=== PATIENT | female | born 1995 | race Caucasian/White ===

== ENCOUNTER 2024-12-23 14:41 | Outpatient (CLI) | payer OTHER, SELFPAY ==
--- NOTE | 2024-12-23 15:00 | CRLHL7_ITS ---
For Patients: As a result of the Century Cures Act, medical imaging exams and procedure reports are released immediately into your electronic medical record. You may view this report before your referring provider. If you have questions, please contact your health care provider. OB ULTRASOUND LESS THAN 14 WEEKS, 12/23/2024 CLINICAL HISTORY: Dating and viability. COMPARISON: None. TECHNIQUE: Real time dave scale imaging of the fetus was performed. Transvaginal imaging performed. Transvaginal ultrasound of the pelvis was performed to better evaluate the genitourinary organs such as the ovaries and/or endometrium. FINDINGS: Imaging: TV. LMP: 10/18/2024. EMANUEL by LMP: 07/25/2025. GA: 9 weeks 3 days. CRL: 2.4 cm, 9 weeks 1 day. EMANUEL 07/27/2025. FHR: 176 bpm. GEST SAC: 3.4 cm, appears WNL. YOLK SAC: 3.7 mm, appears WNL. RIGHT OV: 5.0 x 2.6 x 3.7 cm. CL. LEFT OV: 3.6 x 1.9 x 2.4 cm. IMPRESSION: 1. Single living intrauterine measuring 9 weeks 1 day and sonographic due date 07/27/2025. 2. Simple right ovarian cyst measures 3.6 x 2.1 x 2.7 cm. Guilherme Gu M.D. Diagnostic Radiologist [email or web address] Transcribed: 9:46 am DW/Dictated by: Guilherme Gu MD @ 12/24/2024 6:52:00 AM (Electronically Signed)
== END 2024-12-23 14:42 | disposition home or self-care (01) ==
LOC: US 14:42
PROVIDERS: PCP Physician Assistant; Visit Provider Physician Assistant
DX: Z34.91 Encounter for supervision of normal pregnancy, unspecified, first trimester (principal); O34.81 Maternal care for other abnormalities of pelvic organs, first trimester; N83.291 Other ovarian cyst, right side; Z3A.09 9 weeks gestation of pregnancy
CPT/HCPCS: 76817; 83021; 86703; 86706; 86803; 86850; 86900; 86901; 87086; 87340; 87491; 87591; 87624; 88142

== ENCOUNTER 2024-12-23 15:52 | Outpatient (CLI) | payer OTHER, SELFPAY ==
[2024-12-23 22:12] LABS: Chlamydia DNA Amplified* NOT DETECTED (No Detected); GC DNA Amplified* NOT DETECTED (No Detected)
[2024-12-25 02:44] LABS: HPV Source Cervix
== END 2024-12-23 15:53 | disposition home or self-care (01) ==
PROVIDERS: PCP Physician Assistant; Visit Provider Physician Assistant
DX: Z34.01 Encounter for supervision of normal first pregnancy, first trimester (principal)
CPT/HCPCS: 83020; 83021; 85660; 86592; 86703; 86704; 86706; 86762; 86787; 86803; 86850; 86900; 86901; 87086; 87340; 87491; 87591; 87624; 87625; 88141; 88142

== ENCOUNTER 2025-01-17 10:09 | Outpatient (CLI) | payer OTHER, SELFPAY ==
--- NOTE | 2025-01-17 10:15 | CRLHL7_ITS ---
For Patients: As a result of the Century Cures Act, medical imaging exams and procedure reports are released immediately into your electronic medical record. You may view this report before your referring provider. If you have questions, please contact your health care provider. LEFT BREAST ULTRASOUND CLINICAL HISTORY: LEFT breast lump, follow-up. COMPARISON: 10/10/2023. TECHNIQUE: Real-time ultrasound imaging of LEFT breast with imaging documentation. FINDINGS: Targeted sonogram LEFT breast 11 o`clock 1 cm from the nipple performed. In this location, there is a solid slightly heterogeneous hypoechoic mass which measures 4.0 x 2.0 x 4.0 cm, previously measuring 2.6 x 0.9 x 2.1 cm. Mild internal vascularity noted along with small cystic areas. IMPRESSION: Solid mass LEFT breast 11 o`clock 1 cm from the nipple measuring 4 cm, increased in size compared to the prior study when it measured 2.6 cm. Findings are most consistent with fibroadenoma. RECOMMENDATIONS: Ultrasound-guided core needle biopsy should be considered to exclude phyllodes tumor. Surgical excision should be considered. Results and recommendations were discussed with the patient at the time of the exam. A lay language report of this examination will be provided to the patient. BI-RADS Category 4: Suspicious Dictated by Guilherme Gu MD @ 01/17/2025 11:21:02 AM jj/Dictated by: Guilherme Gu MD @ 01/17/2025 11:21:00 AM (Electronically Signed)
== END 2025-01-17 10:10 | disposition home or self-care (01) ==
LOC: US 10:11
PROVIDERS: Visit Provider Physician Assistant
DX: N63.20 Unspecified lump in the left breast, unspecified quadrant (principal)
CPT/HCPCS: 76642

== ENCOUNTER 2025-02-20 11:04 | Outpatient (CLI) | payer OTHER, SELFPAY ==
--- NOTE | 2025-02-20 11:15 | CRLHL7_ITS ---
For Patients: As a result of the Century Cures Act, medical imaging exams and procedure reports are released immediately into your electronic medical record. You may view this report before your referring provider. If you have questions, please contact your health care provider. ULTRASOUND-GUIDED BREAST BIOPSY CLINICAL HISTORY: Large solid mass. COMPARISON STUDIES: 10/10/2023, 01/17/2025. TECHNIQUE: Real-time ultrasound with image documentation was used for targeting the breast lesion. Core biopsy specimens were obtained using an automated gun with a 16-gauge biopsy needle. CONSENT and TIME OUT: The procedure, risks, and alternatives were explained to the patient and a consent was signed. [place] Protocol was followed including pre-procedure verification that relevant information/documentation was available, reviewed and properly matched to the patient; consent accurate and complete; and equipment and supplies available. Time Out was conducted just prior to starting procedure to verify the four required elements: patient identity, correct side/site marked (if applicable), procedure, relevant images/results properly labeled and displayed (if applicable). PROCEDURE: The patient was positioned supine on the ultrasound table. The breast was prepped with ChloraPrep. 8 cc of 1 percent lidocaine used for local anesthesia. Core samples were obtained. The specimens were placed in 10% formalin and sent to the pathology department. Pressure was held on the biopsy site until all bleeding subsided. The skin incision was closed with Steri-Strips. An ice pack was positioned over the biopsy site. Post-biopsy instructions were reviewed with the patient, and a written copy was given to her. LATERALITY: LEFT breast. LESION: Hypoechoic solid mass with a few internal cystic areas noted. Mass measures 4.0 x 2.0 x 4.0 cm at 11 o`clock 1 cm from the nipple. SUSPICION FOR MALIGNANCY: Probable fibroadenoma, rule out phyllodes tumor. NUMBER OF SAMPLES: 5. IMPRESSION: Ultrasound-guided breast biopsy. When the pathology report is available, an addendum to this report will be made. ACR not applicable Dictated by Guilherme Gu MD @ 02/20/2025 12:33:00 PM coty/Dictated by: Guilherme Gu MD @ 02/20/2025 12:33:00 PM (Electronically Signed)
== END 2025-02-20 11:05 | disposition home or self-care (01) ==
LOC: US 11:04
PROVIDERS: Visit Provider Surgery
DX: D24.2 Benign neoplasm of left breast (principal)
CPT/HCPCS: 19083; 88305; A4648; A4649

== ENCOUNTER 2025-03-06 06:16 | Day surgery (SDC) | payer OTHER, SELFPAY ==
[2025-03-06] VITALS (7 sets, daily range): BP systolic 102–127; BP diastolic 67–77; PULSE 63–88; RESP 16–18; TEMP 36.6–36.7; O2SAT 95–99; BMI 29.1
[2025-03-06] MEDS: LACTATED RINGERS 1000 ML 1,000 ML 100 ML IV (06:25)
[2025-03-06] MEDS: SODIUM CHLORIDE 0.9 % (FLUSH) 10 ML SYRINGE IVF (06:41)
--- NOTE | 2025-03-06 07:18 | SUR.PREOP ---
OB RN in room to do FHT, 150s reported for HR.
--- NOTE | 2025-03-06 07:39 | P.GSHP_ITS ---
History of Present Illness History of Present Illness Date Seen: 03/06/25 Chief complaint: Left Breast Mass Excision Narrative: Ade Maria is a 29 year old female who presents today for excision of a left breast mass. She is currently in her 2nd trimester. heart tones were performed and within normal limits. This has been without complication. Patient is otherwise healthy. No changes in her medical or surgical history. Review of Systems Status of ROS: Reports: 10 or more systems reviewed and unremarkable except as noted in History and below [facility] Social History (Updated 12/24/24 @ 09:52 by Yamilet Brasher PA-C) Narrative: Occupation: She is employed at a bank. Marital status: . Christian/cultural needs: no. Chemical or radiation exposure: no. Pre- tobacco use: Vaping pre . Pre- alcohol use: Occasional. Current tobacco use: no. Current alcohol use: no. Recreational drug use: no. Dietary restrictions: no. Blood transfusion acceptable in an emergency: yes. PSYCHOSOCIAL HISTORY: History of depression or currently depressed: Yes history, never treated. Current or past physical, emotional, or sexual mistreatment: Denies. Problems that will make it hard to make it to appointments: Denies. What is your current living situation?: I presently have a place to live Problems where you live: no known problems In the past 12 months, utilities in danger of being shut off: no In past 12 months, lack of transportation kept you from medical appts, meetings, work, or getting things needed for daily living: no In the past 12 mos, have been you worried that your food would run out before you had money to buy more?: never true In the past 12 mos, the food you bought just didn't last and you didn't have money to buy more?: never true Smoking Status: Never smoker Do you use any of these nicotine containing products: Vaping Products Smokeless tobacco user details: not since being How often do you have a drink containing alcohol: 2-4 times a month Alcohol type details: not since being AUDIT-C Alcohol total score: 2 Non-prescribed substance use: denies use Caffeine: Yes How often does anyone, including family, friends and others, physically hurt you : never How often does anyone, including family, friends and others, insult or talk down to you: never How often does anyone, including family, friends and others, threaten you with harm: never How often does anyone, including family, friends and others, scream or curse at you: never Meds Home Medications and Allergies Home Medications ?Medication ?Instructions ?Recorded ?Confirmed ?Type [id number] 3 fatty no.1 27 cap PO 12/23/24 09/0 02/03 History mg-1 mg-300 mg capsule magnesium 250 mg tablet 250 mg PO QDAY 12/23/242 11/03 History Allergies Allergy/AdvReac Type Severity Reaction Status Date / Time No Known Drug Allergies Allergy Verified 03/06/25 06:28 Exam Narrative: Exam Narrative: General: Alert and oriented, no acute distress. Respiratory: Equal breath rise bilaterally, clear breath sounds CV: Regular rhythm and rate Breast: Left breast mass at the 9 o'clock position. Some resolving ecchymoses of the skin. 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 No changes to her medical or surgical history. No further workup needed. Will obtain heart tones postoperatively. Risks and benefits of the procedure were discussed at length the patient and her . All questions and concerns were addressed with her agreeing to proceed.
[2025-03-06] MEDS: LIDOCAINE 1% MDV 20 ML INJECTION (08:00)
[2025-03-06] MEDS: BUPIVACAINE 0.25% 30 ML INJECTION (08:00)
--- NOTE | 2025-03-06 08:19 | PM.GSPRC ---
Operative Note Date of procedure: 03/06/25 Pre-op diagnosis: Left breast mass Post-op diagnosis: Same, fibroadenoma Type of Procedure: Excision of left breast mass Indications: Patient is a 29-year-old female who presented to clinic with a growing mass of her left breast. Clinical workup included imaging and biopsy, with differential of fibroadenoma versus phyllodes tumor. Given the size and reported growth recommendations were for excision in the operating room. Risks and benefits of operative intervention were discussed at length with the patient. Risks included but was not limited to: Bleeding, infection, risk of damage to surrounding structures, possible need for additional procedures and postoperative complications such as pneumonia, pulmonary emboli or [place]. All questions and concerns were addressed with the patient agreeing to proceed. Procedure Description: After discussing the risks and benefits of the procedure, the patient signed informed consent.? The operative site was marked and the patient was brought to the operating room and placed on the operating table in supine position.? Care was taken to pad the patient's pressure points.?? The patient was then given sedation by anesthesia.?? The operative site was then prepped and draped in the usual sterile fashion.? A time-out was then performed. Local anesthetic was used to infiltrate the surgical field. A periareolar incision was made at 9 o'clock over the mass. Dissection was continued through the dermis and underlying breast tissue with cautery. A well encapsulated breast mass was encountered. This was circumferentially dissected free with a mosquito and cautery. The mass was removed in its entirety and measured 5 cm. The specimen was passed off for pathology. Hemostasis was assured with cautery. The incision was irrigated. Additional local anesthetic was placed into the breast tissue. The incision was then closed in layers with interrupted 3-0 Vicryl and running 4-0 Monocryl. Dermabond was placed over top and a sterile dressing applied. The patient was then woken and transported to the recovery area in stable condition. ? The patient tolerated the procedure well. Findings: Left breast mass, consistent with fibroadenoma. Anesthesia: MAC Surgeon: Nataly Tamayo MD Estimated blood loss (mL): 5 Condition: stable Disposition: same day
--- NOTE | 2025-03-06 08:29 | P.ANES_ITS ---
Anesthesia Charges Start Date/Time Anesthesia Start Date: 03/06/25 Anesthesia Start Time: 07:39 Stop Date/Time Anesthesia Stop Date: 03/06/25 Anesthesia Stop Time: 08:29 Coding CPT Codes CPT Codes: ANESTH SKIN EXT/PER/ATRUNK - 65555 ([id number]) P2 - PATIENT W/MILD SYST DISEASE, QX - IMMIGRATION OFFICER SVC W/ MD MED DIRECTION, QK - CLINICAL RESEARCH ASSISTANT 2-4 CNCRNT ANES PROC
--- NOTE | 2025-03-06 08:29 | W.ANESCHARGE ---
Anesthesia Charges Start Date/Time Anesthesia Start Date: 03/06/25 Anesthesia Start Time: 07:39 Stop Date/Time Anesthesia Stop Date: 03/06/25 Anesthesia Stop Time: 08:29 Coding CPT Codes CPT Codes: ANESTH SKIN EXT/PER/ATRUNK - 11384 ([id number]) P2 - PATIENT W/MILD SYST DISEASE, QX - SODA TESTER SVC W/ MD MED DIRECTION, QK - CRIMINOLOGY TEACHER 2-4 CNCRNT ANES PROC
--- NOTE | 2025-03-06 08:32 | SUR.PHASEII ---
OB RN in room for post-op FHT, reports 130s for HR.
--- NOTE | 2025-03-06 08:37 | P.ANES_ITS ---
Anesthesia Charges Start Date/Time Anesthesia Start Date: 03/06/25 Anesthesia Start Time: 07:39 Stop Date/Time Anesthesia Stop Date: 03/06/25 Anesthesia Stop Time: 08:29 Coding CPT Codes CPT Codes: ANESTH SKIN EXT/PER/ATRUNK - 12233 ([id number]) QK - SOCIAL SERVICE ASSISTANT 2-4 CNCRNT ANES PROC, QX - HONEY EXTRACTOR SVC W/ MD MED DIRECTION, P2 - PATIENT W/MILD SYST DISEASE
--- NOTE | 2025-03-06 08:37 | W.ANESCHARGE ---
Anesthesia Charges Start Date/Time Anesthesia Start Date: 03/06/25 Anesthesia Start Time: 07:39 Stop Date/Time Anesthesia Stop Date: 03/06/25 Anesthesia Stop Time: 08:29 Coding CPT Codes CPT Codes: ANESTH SKIN EXT/PER/ATRUNK - 13791 ([id number]) QK - GRANULATOR TENDER 2-4 CNCRNT ANES PROC, QX - FOURDRINIER WIRE WEAVER SVC W/ MD MED DIRECTION, P2 - PATIENT W/MILD SYST DISEASE
== END 2025-03-06 09:41 | disposition home or self-care (01) ==
PROVIDERS: Visit Provider Surgery
PROC: (CPT 19120; principal; 2025-03-06 07:30)
DX: D24.2 Benign neoplasm of left breast (principal)
CPT/HCPCS: 19120; 00400; 88307; J2003; J0665; J0690; J2405; J2704; J3010; J7120

== ENCOUNTER 2025-03-20 13:45 | Outpatient (CLI) | payer OTHER, SELFPAY ==
--- NOTE | 2025-03-20 14:00 | CRLHL7_ITS ---
For Patients: As a result of the Century Cures Act, medical imaging exams and procedure reports are released immediately into your electronic medical record. You may view this report before your referring provider. If you have questions, please contact your health care provider. OB ULTRASOUND SURVEY EMANUEL by US: 07/27/2024. GA: 21 w, 4 d. INDICATION: anatomic survey. TECHNIQUE: Real time grayscale imaging of the fetus was performed. Evaluate anatomy. Transabdominal imaging performed. position: Breech. Cervix: Visualized. Technique: Transabdominal. Length of closed cervix: 3.7 cm. Placenta/cord: Anterior. Technique: Transabdominal. Placenta tip to internal OS: 6.9 cm. Umbilical Cord: 3-vessel cord. Placenta insertion: Central. Amniotic Fluid: 5.1 cm SDP (greater than/equal to: 2- less than 8 cm). SURVEY: Observed Structures. Calvarium/Spine: Cerebellum: 2.4 cm, 23 w 3 d. Cisterna Magna: 4.5 mm. Nuchal Fold: 5.9 mm. Lateral Ventricle: 6.9 mm. CSP: Yes. Midline Falx: Yes. Choroid Plexus: Yes. Spine: Yes. Abdomen: Stomach: Yes. Abd Cord Insertion: Yes. Urinary Bladder: Yes. Kidneys: Yes. Diaphragm: See impression. Face: Nose/lips: Yes. Orbital view: Yes. Profile: See impression. Limbs: Upper Extremities: Yes. Lower Extremities: Yes. Hands: Yes. Feet: Yes. Vascular: 4-Chamber Heart: See impression. LVOT: See impression. RVOT: Yes. 3VV: Yes. 3VTV: Yes. BPD: 5.2 cm. 21 w, 5 d, 56.3%. HC: 19.4 cm. 21 w, 4 d, 41.2%. AC: 17.3 cm. 22 w, 1 d, 63.6%. FL: 3.7 cm. 21 w, 4 d, 42.2%. FL/AC ratio: 21.2%. HC/AC ratio: 1.1. heart rate: 157 bpm. age by this US: 22 w, 1 d. EMANUEL by this US: 07/23/2024. EFW: 460.2g. Weight: 1 lbs., 0 oz. Percentile by EMANUEL: 62.4%. IMPRESSION: 1. Concordance of clinical and sonographic dating. 2. Incomplete visualization of the profile, four-chamber heart, LVOT, and diaphragm. Short-term follow-up recommended. 3. Remainder of the anatomic survey is normal. Guilherme Gu M.D. Diagnostic Radiologist [email or web address] [email or web address] jj/Dictated by: Guilherme Gu MD @ 03/20/2025 4:28:00 PM (Electronically Signed)
== END 2025-03-20 13:46 | disposition home or self-care (01) ==
LOC: US 13:45
PROVIDERS: Visit Provider Advanced Practice Midwife
DX: Z34.92 Encounter for supervision of normal pregnancy, unspecified, second trimester (principal); Z3A.21 21 weeks gestation of pregnancy
CPT/HCPCS: 76805

== ENCOUNTER 2025-04-11 13:35 | Outpatient (CLI) | payer OTHER, SELFPAY ==
--- NOTE | 2025-04-11 14:00 | CRLHL7_ITS ---
For Patients: As a result of the Century Cures Act, medical imaging exams and procedure reports are released immediately into your electronic medical record. You may view this report before your referring provider. If you have questions, please contact your health care provider. OB ULTRASOUND FOLLOW-UP CLINICAL HISTORY: Follow-up missing anatomy views. TECHNIQUE: Real time dave scale imaging of the fetus was performed. Transabdominal imaging performed. COMPARISON: 03/20/2025, 12/23/2024. FINDINGS: EMANUEL by US: 07/27/2025. GA: 24 weeks 5 days. Gestation: Single. Cervix: Visualized. Positioning: Multiple. Placenta: Technique: TA. Placenta Position: Anterior. Amniotic Fluid: 5.2 cm SDP. Dopplers: Heart Rate 155 bpm. IMPRESSION: Normal profile, bladder, stomach, diaphragm, LVOT and four chamber heart are normal. Guilherme Gu M.D. Diagnostic Radiologist [email or web address] Transcribed: 3:07 pm DW/Dictated by: Guilherme Gu MD @ 04/11/2025 2:31:00 PM (Electronically Signed)
== END 2025-04-11 13:36 | disposition home or self-care (01) ==
LOC: US 13:36
PROVIDERS: Visit Provider Advanced Practice Midwife
DX: Z36.2 Encounter for other antenatal screening follow-up (principal); Z3A.24 24 weeks gestation of pregnancy
CPT/HCPCS: 76816; 86592